=== PATIENT | male | born 1980 | race African-American/Black ===

== ENCOUNTER 2020-10-07 15:53 | Inpatient (IN) | payer OTHER ==
[2020-10-07] VITALS (9 sets, daily range): BP systolic 181–225; BP diastolic 86–128
[~2020-10-07] VITALS: Ht 180.3 cm; Wt 163.3 kg
[2020-10-07 16:31] LABS: BASO % 0.4 % (0.0-1.0); EOS # 0.3 10*3/uL (0.0-0.4); EOS % 3.5 % (1.0-4.0); HEMATOCRIT 29.5 % (42.0-52.0); LYMPH # 1.5 10*3/uL (1.3-4.4); LYMPH % 19.9 % (27.0-41.0); MEAN CELL VOLUME 95.8 fl (80.0-94.0); MEAN CORPUSCULAR HGB 29.9 pg (27.0-31.0); MEAN CORPUSCULAR HGB CONC 31.2 g/dl (33.0-37.0); MEAN PLATELET VOLUME 8.6 fl (9.6-12.3); MONO # 0.5 10*3/uL (0.1-1.0); MONO % 5.9 % (3.0-9.0); NEUT # 5.3 10*3/uL (2.3-7.9); NEUT % 69.1 % (47.0-73.0); PLATELET COUNT AUTOMATED 309 10*3/uL (130-400); RED BLOOD COUNT 3.08 10*6/uL (4.50-5.90); RED CELL DISTRI WIDTH 17.1 % (0-14.5); WHITE BLOOD COUNT 7.7 10*3/uL (4.8-10.8)
[2020-10-07 16:49] LABS: ALBUMIN 3.3 gm/dl (3.1-4.5); POTASSIUM 4.7 mmol/L (3.5-5.1); TOTAL PROTEIN 7.9 gm/dL (6.4-8.2)
[2020-10-07 16:52] LABS: CREATININE 21.1 mg/dL (0.70-1.30)
[2020-10-07] MEDS ORDERED: SENSIPAR90 MG PO (20:31)
[2020-10-07] MEDS ORDERED: COZAAR50 M1 PO (20:32)
[2020-10-07] MEDS ORDERED: CARVEDILOL25 MG PO (20:32)
[2020-10-07] MEDS ORDERED: GRALISE300 M1 PO (20:33)
[2020-10-07] MEDS ORDERED: LANTUS SOL100 UNIT/1 SC (20:34)
[2020-10-07] MEDS ORDERED: HUMALOG100 UNIT/1 SC (20:34)
[2020-10-08] VITALS (7 sets, daily range): BP systolic 141–196; BP diastolic 71–99
[2020-10-08 05:55] LABS: BILIRUBIN Negative (Negative); BLOOD 2+ (Negative); CLARITY Clear (Clear); COLOR Yellow (Yellow); GLUCOSE 2+ (Negative); KETONE Negative (Negative); LEUKO ESTERASE Negative (Negative); NITRITE Negative (Negative); UROBILINOGEN 0.2 E.U./dl (0.0-1.0)
[2020-10-08 06:04] LABS: WBC 0-2 wbc/hpf (0-5)
[2020-10-08 06:41] LABS: BASO % 0.4 % (0.0-1.0); EOS # 0.3 10*3/uL (0.0-0.4); EOS % 3.2 % (1.0-4.0); HEMATOCRIT 30.4 % (42.0-52.0); LYMPH # 1.2 10*3/uL (1.3-4.4); MEAN CELL VOLUME 96.2 fl (80.0-94.0); MEAN CORPUSCULAR HGB 29.4 pg (27.0-31.0); MEAN CORPUSCULAR HGB CONC 30.6 g/dl (33.0-37.0); MEAN PLATELET VOLUME 9.3 fl (9.6-12.3); MONO # 0.7 10*3/uL (0.1-1.0); MONO % 8.6 % (3.0-9.0); NEUT # 5.7 10*3/uL (2.3-7.9); PLATELET COUNT AUTOMATED 336 10*3/uL (130-400); RED BLOOD COUNT 3.16 10*6/uL (4.50-5.90); RED CELL DISTRI WIDTH 16.8 % (0-14.5); WHITE BLOOD COUNT 7.9 10*3/uL (4.8-10.8)
[2020-10-08 07:27] LABS: POTASSIUM 4.7 mmol/L (3.5-5.1)
[2020-10-08 07:28] LABS: VITAMIN D, 25-HYDROXY 17.6 ng/mL (30-100)
[2020-10-08 07:45] LABS: ALBUMIN 3.3 gm/dl (3.1-4.5); TOTAL PROTEIN 7.8 gm/dL (6.4-8.2)
[2020-10-08] MEDS ORDERED: NATURE'S BLEND F1 MG PO (13:07)
[2020-10-08] MEDS ORDERED: VITAMIN D350 MC2 PO (13:07)
[2020-10-09] VITALS: BP 146/50
== END 2020-10-09 12:57 | disposition short-term general hospital (02) | DRG 466 ==
LOC: ED 15:53 → 5E 17:31 → EDHOLD 17:31 → 5E 19:42
PROVIDERS: Internal Medicine; Nurse Practitioner; ADMIT Internal Medicine; ATTEND Internal Medicine
PROC: 06HM33Z Insertion of Infusion Device into Right Femoral Vein, Percutaneous Approach (ICD-10-PCS; principal; 2020-10-08)
PROC: 02PYX3Z Removal of Infusion Device from Great Vessel, External Approach (ICD-10-PCS; 2020-10-08)
PROC: 05JY3ZZ Inspection of Upper Vein, Percutaneous Approach (ICD-10-PCS; 2020-10-08)
PROC: 5A1D70Z Performance of Urinary Filtration, Intermittent, Less than 6 Hours Per Day (ICD-10-PCS; 2020-10-08)
PROC: 5A1D70Z Performance of Urinary Filtration, Intermittent, Less than 6 Hours Per Day (ICD-10-PCS; 2020-10-09)
DX: T82.41XA Breakdown (mechanical) of vascular dialysis catheter, initial encounter (principal); I12.0 Hypertensive chronic kidney disease with stage 5 chronic kidney disease or end stage renal disease; N18.6 End stage renal disease; E87.1 Hypo-osmolality and hyponatremia; E10.22 Type 1 diabetes mellitus with diabetic chronic kidney disease; D53.9 Nutritional anemia, unspecified; D72.810 Lymphocytopenia; E10.65 Type 1 diabetes mellitus with hyperglycemia; E83.39 Other disorders of phosphorus metabolism; E66.01 Morbid (severe) obesity due to excess calories; E53.8 Deficiency of other specified B group vitamins; I87.2 Venous insufficiency (chronic) (peripheral); R78.81 Bacteremia; Y84.8 Other medical procedures as the cause of abnormal reaction of the patient, or of later complication, without mention of misadventure at the time of the procedure; Y92.89 Other specified places as the place of occurrence of the external cause; Z88.8 Allergy status to other drugs, medicaments and biological substances; Z79.899 Other long term (current) drug therapy; Z99.2 Dependence on renal dialysis; Z79.4 Long term (current) use of insulin; Z68.43 Body mass index [BMI] 50.0-59.9, adult

== ENCOUNTER 2021-01-12 01:06 | Inpatient (IN) | payer MEDICAID ==
[~2021-01-12] VITALS: Ht 180.3 cm; Wt 140.3 kg
[2021-01-12] VITALS (26 sets, daily range): BP systolic 132–206; BP diastolic 49–118
[~2021-01-12 01:06] MED LIST: CALCIUM ACETAT667 MG PO; CARVEDILOL25 MG PO; COREG12.5 M1 PO; COZAAR50 M1 PO; GRALISE300 M1 PO; HUMALOG100 UNIT/1 SC; HYDROXYZINE HCL25 MG PO; LANTUS SOL100 UNIT/1 SC; LATU40TA PO; NATURE'S BLEND F1 MG PO; PANTOPRAZOLE SO40 MG PO; SENSIPAR90 MG PO; VITAMIN D350 MC2 PO
[2021-01-12 02:15] LABS: BASO % 0.4 % (0.0-1.0); EOS # 0.3 10*3/uL (0.0-0.4); EOS % 3.7 % (1.0-4.0); HEMATOCRIT 27.3 % (42.0-52.0); LYMPH # 1.2 10*3/uL (1.3-4.4); LYMPH % 16.9 % (27.0-41.0); MEAN CELL VOLUME 98.6 fl (80.0-94.0); MEAN CORPUSCULAR HGB 31.8 pg (27.0-31.0); MEAN CORPUSCULAR HGB CONC 32.2 g/dl (33.0-37.0); MEAN PLATELET VOLUME 9.1 fl (9.6-12.3); MONO # 0.5 10*3/uL (0.1-1.0); MONO % 6.9 % (3.0-9.0); NEUT # 5.2 10*3/uL (2.3-7.9); NEUT % 71.8 % (47.0-73.0); PLATELET COUNT AUTOMATED 278 10*3/uL (130-400); RED BLOOD COUNT 2.77 10*6/uL (4.50-5.90); RED CELL DISTRI WIDTH 16.3 % (0-14.5); WHITE BLOOD COUNT 7.2 10*3/uL (4.8-10.8)
[2021-01-12 02:34] LABS: ALBUMIN 3.5 gm/dl (3.1-4.5); POTASSIUM 4.3 mmol/L (3.5-5.1); TOTAL PROTEIN 7.4 gm/dL (6.4-8.2)
[2021-01-12 02:41] LABS: CREATININE 28.4 mg/dL (0.70-1.30); THYROID STIM HORMONE (HS) 2.54 uIU/ml (0.358-4.75)
[2021-01-12 05:27] LABS: ALBUMIN 3.4 gm/dl (3.1-4.5); POTASSIUM 4.5 mmol/L (3.5-5.1)
[2021-01-12 05:34] LABS: CREATININE 28.4 mg/dL (0.70-1.30)
[2021-01-12 06:12] LABS: BASO % 0.3 % (0.0-1.0); EOS # 0.3 10*3/uL (0.0-0.4); EOS % 3.7 % (1.0-4.0); HEMATOCRIT 25.6 % (42.0-52.0); LYMPH # 1.3 10*3/uL (1.3-4.4); LYMPH % 19.8 % (27.0-41.0); MEAN CELL VOLUME 98.8 fl (80.0-94.0); MEAN CORPUSCULAR HGB 31.7 pg (27.0-31.0); MONO # 0.4 10*3/uL (0.1-1.0); MONO % 6.4 % (3.0-9.0); NEUT # 4.7 10*3/uL (2.3-7.9); NEUT % 69.5 % (47.0-73.0); PLATELET COUNT AUTOMATED 288 10*3/uL (130-400); RED BLOOD COUNT 2.59 10*6/uL (4.50-5.90); RED CELL DISTRI WIDTH 16.2 % (0-14.5); WHITE BLOOD COUNT 6.8 10*3/uL (4.8-10.8)
[2021-01-12] MEDS ORDERED: ELIQUIS5 M1 PO (15:20)
[2021-01-12] MEDS ORDERED: LOSARTAN POTASS50 M1 PO (15:21)
[2021-01-12] MEDS ORDERED: TRAZODONE50 MG PO (16:37)
[2021-01-13 06:30] LABS: ALBUMIN 3.5 gm/dl (3.1-4.5); TOTAL PROTEIN 7.3 gm/dL (6.4-8.2)
[2021-01-13 06:32] LABS: BASO % 0.3 % (0.0-1.0); EOS # 0.3 10*3/uL (0.0-0.4); EOS % 4.3 % (1.0-4.0); LYMPH # 1.3 10*3/uL (1.3-4.4); LYMPH % 20.3 % (27.0-41.0); MEAN CELL VOLUME 96.2 fl (80.0-94.0); MEAN CORPUSCULAR HGB 31.3 pg (27.0-31.0); MEAN CORPUSCULAR HGB CONC 32.5 g/dl (33.0-37.0); MEAN PLATELET VOLUME 9.5 fl (9.6-12.3); MONO # 0.4 10*3/uL (0.1-1.0); NEUT # 4.3 10*3/uL (2.3-7.9); NEUT % 67.9 % (47.0-73.0); PLATELET COUNT AUTOMATED 288 10*3/uL (130-400); RED BLOOD COUNT 2.91 10*6/uL (4.50-5.90); RED CELL DISTRI WIDTH 15.8 % (0-14.5); WHITE BLOOD COUNT 6.3 10*3/uL (4.8-10.8)
[2021-01-13 07:28] LABS: CREATININE 20.8 mg/dL (0.70-1.30)
[2021-01-13 08:00] VITALS: BP 174/92
[2021-01-13] MEDS ORDERED: LATU40TA PO ×2 (12:58)
== END 2021-01-13 13:49 | disposition home or self-care (01) | DRG 304 ==
LOC: ED 01:06 → EDHOLD 04:13 → 5E 04:13
PROVIDERS: Emergency Medicine; Internal Medicine; ADMIT Student in an Organized Health Care Education/Training Program; ATTEND Student in an Organized Health Care Education/Training Program
PROC: 5A1D70Z Performance of Urinary Filtration, Intermittent, Less than 6 Hours Per Day (ICD-10-PCS; 2021-01-12)
PROC: 5A1D70Z Performance of Urinary Filtration, Intermittent, Less than 6 Hours Per Day (ICD-10-PCS; principal; 2021-01-13)
DX: I16.1 Hypertensive emergency (principal); N18.6 End stage renal disease; E87.1 Hypo-osmolality and hyponatremia; E53.8 Deficiency of other specified B group vitamins; R74.8 Abnormal levels of other serum enzymes; E83.41 Hypermagnesemia; E10.65 Type 1 diabetes mellitus with hyperglycemia; D53.9 Nutritional anemia, unspecified; R11.2 Nausea with vomiting, unspecified; R53.1 Weakness; R53.81 Other malaise; R00.0 Tachycardia, unspecified; R53.83 Other fatigue; I12.0 Hypertensive chronic kidney disease with stage 5 chronic kidney disease or end stage renal disease; E10.22 Type 1 diabetes mellitus with diabetic chronic kidney disease; Z99.2 Dependence on renal dialysis; Z88.8 Allergy status to other drugs, medicaments and biological substances; Z91.048 Other nonmedicinal substance allergy status; Z84.89 Family history of other specified conditions; Z86.711 Personal history of pulmonary embolism; Z79.899 Other long term (current) drug therapy; Z91.19 Patient's noncompliance with other medical treatment and regimen

== ENCOUNTER 2021-01-28 08:09 | Emergency (ER) | payer OTHER ==
[~2021-01-28] VITALS: Wt 134.7 kg
[~2021-01-28 08:09] MED LIST changes: +ELIQUIS5 M1 PO; +LOSARTAN POTASS50 M1 PO; +TRAZODONE50 MG PO
[2021-01-28 08:51] LABS: BASO % 0.2 % (0.0-1.0); EOS # 0.1 10*3/uL (0.0-0.4); EOS % 1.5 % (1.0-4.0); HEMATOCRIT 30.4 % (42.0-52.0); LYMPH # 1.1 10*3/uL (1.3-4.4); LYMPH % 12.9 % (27.0-41.0); MEAN CELL VOLUME 99.7 fl (80.0-94.0); MEAN CORPUSCULAR HGB 31.8 pg (27.0-31.0); MEAN CORPUSCULAR HGB CONC 31.9 g/dl (33.0-37.0); MEAN PLATELET VOLUME 9.4 fl (9.6-12.3); MONO # 0.8 10*3/uL (0.1-1.0); MONO % 9.2 % (3.0-9.0); NEUT # 6.3 10*3/uL (2.3-7.9); PLATELET COUNT AUTOMATED 222 10*3/uL (130-400); RED BLOOD COUNT 3.05 10*6/uL (4.50-5.90); RED CELL DISTRI WIDTH 16.7 % (0-14.5); WHITE BLOOD COUNT 8.2 10*3/uL (4.8-10.8)
[2021-01-28 09:06] LABS: ALBUMIN 3.2 gm/dl (3.1-4.5); CREATININE 19.7 mg/dL (0.70-1.30); POTASSIUM 3.9 mmol/L (3.5-5.1)
== END 2021-01-28 09:35 | disposition home or self-care (01) ==
LOC: ED 08:09
PROVIDERS: Family Medicine
DX: N18.6 End stage renal disease (principal); Z20.822 Contact with and (suspected) exposure to COVID-19; Z99.2 Dependence on renal dialysis; Z88.8 Allergy status to other drugs, medicaments and biological substances; Z79.899 Other long term (current) drug therapy

== ENCOUNTER 2021-02-10 02:01 | Inpatient (IN) | payer OTHER ==
[2021-02-10] VITALS (13 sets, daily range): BP systolic 139–229; BP diastolic 84–126
[~2021-02-10] VITALS: Ht 180.3 cm; Wt 142.3 kg
[2021-02-10 02:33] LABS: BASO % 0.3 % (0.0-1.0); EOS # 0.3 10*3/uL (0.0-0.4); EOS % 3.9 % (1.0-4.0); HEMATOCRIT 28.4 % (42.0-52.0); LYMPH # 1.2 10*3/uL (1.3-4.4); LYMPH % 16.1 % (27.0-41.0); MEAN CELL VOLUME 98.6 fl (80.0-94.0); MEAN CORPUSCULAR HGB 30.9 pg (27.0-31.0); MEAN CORPUSCULAR HGB CONC 31.3 g/dl (33.0-37.0); MEAN PLATELET VOLUME 9.7 fl (9.6-12.3); MONO # 0.4 10*3/uL (0.1-1.0); MONO % 5.2 % (3.0-9.0); NEUT # 5.3 10*3/uL (2.3-7.9); NEUT % 73.9 % (47.0-73.0); PLATELET COUNT AUTOMATED 247 10*3/uL (130-400); RED BLOOD COUNT 2.88 10*6/uL (4.50-5.90); RED CELL DISTRI WIDTH 15.6 % (0-14.5); WHITE BLOOD COUNT 7.2 10*3/uL (4.8-10.8)
[2021-02-10 02:50] LABS: ALBUMIN 3.4 gm/dl (3.1-4.5); POTASSIUM 5.2 mmol/L (3.5-5.1); TOTAL PROTEIN 7.2 gm/dL (6.4-8.2)
[2021-02-10 02:53] LABS: TROPONIN I 0.039 ng/ml (<0.045)
[2021-02-10 03:00] LABS: CREATININE 24.3 mg/dL (0.70-1.30)
[2021-02-10 05:51] LABS: POTASSIUM 5.6 mmol/L (3.5-5.1)
[2021-02-10 06:04] LABS: ALBUMIN 3.3 gm/dl (3.1-4.5); THYROID STIM HORMONE (HS) 3.4 uIU/ml (0.358-4.75); TOTAL PROTEIN 6.9 gm/dL (6.4-8.2)
[2021-02-10 06:08] LABS: CREATININE 24.6 mg/dL (0.70-1.30)
[2021-02-10 06:21] LABS: BASO % 0.3 % (0.0-1.0); EOS # 0.3 10*3/uL (0.0-0.4); HEMATOCRIT 27.3 % (42.0-52.0); LYMPH % 11.2 % (27.0-41.0); MEAN CELL VOLUME 98.9 fl (80.0-94.0); MEAN CORPUSCULAR HGB 31.2 pg (27.0-31.0); MEAN CORPUSCULAR HGB CONC 31.5 g/dl (33.0-37.0); MEAN PLATELET VOLUME 9.3 fl (9.6-12.3); MONO # 0.5 10*3/uL (0.1-1.0); MONO % 5.4 % (3.0-9.0); NEUT # 6.9 10*3/uL (2.3-7.9); NEUT % 79.8 % (47.0-73.0); PLATELET COUNT AUTOMATED 187 10*3/uL (130-400); RED BLOOD COUNT 2.76 10*6/uL (4.50-5.90); RED CELL DISTRI WIDTH 15.5 % (0-14.5); WHITE BLOOD COUNT 8.7 10*3/uL (4.8-10.8)
[2021-02-10 07:28] LABS: ACT PARTIAL THROMBO TIME 28.2 SECONDS (20.0-32.1)
[2021-02-10 07:30] LABS: VITAMIN D, 25-HYDROXY 26.2 ng/mL (30-100)
[2021-02-10] MEDS ORDERED: ELIQUIS5 M1 PO (14:18)
[2021-02-10] MEDS ORDERED: LOSARTAN POTASS50 M1 PO (14:19)
[2021-02-10] MEDS ORDERED: PHOSLYRA667 MG/51 PO (14:20)
[2021-02-11] VITALS: BP 163/96
[2021-02-11 06:54] LABS: ALBUMIN 3.2 gm/dl (3.1-4.5); BASO % 0.4 % (0.0-1.0); CREATININE 19.5 mg/dL (0.70-1.30); EOS # 0.2 10*3/uL (0.0-0.4); EOS % 3.4 % (1.0-4.0); HEMATOCRIT 23.8 % (42.0-52.0); LYMPH # 0.9 10*3/uL (1.3-4.4); LYMPH % 15.4 % (27.0-41.0); MEAN CELL VOLUME 95.2 fl (80.0-94.0); MEAN CORPUSCULAR HGB 31.2 pg (27.0-31.0); MEAN CORPUSCULAR HGB CONC 32.8 g/dl (33.0-37.0); MEAN PLATELET VOLUME 9.7 fl (9.6-12.3); MONO # 0.5 10*3/uL (0.1-1.0); NEUT # 4.1 10*3/uL (2.3-7.9); NEUT % 72.3 % (47.0-73.0); PLATELET COUNT AUTOMATED 193 10*3/uL (130-400); RED CELL DISTRI WIDTH 15.6 % (0-14.5); TOTAL PROTEIN 6.7 gm/dL (6.4-8.2); WHITE BLOOD COUNT 5.7 10*3/uL (4.8-10.8)
[2021-02-11 07:19] LABS: POTASSIUM 4.1 mmol/L (3.5-5.1)
[2021-02-11 08:00] VITALS: BP 184/82
[2021-02-11 12:35] VITALS: BP 200/100
== END 2021-02-11 14:10 | disposition home or self-care (01) | DRG 291 ==
LOC: ED 02:01 → EDHOLD 04:08 → 4E 04:08
PROVIDERS: Emergency Medicine; Hospitalist; Internal Medicine; ADMIT Emergency Medicine; ATTEND Emergency Medicine
PROC: 5A1D70Z Performance of Urinary Filtration, Intermittent, Less than 6 Hours Per Day (ICD-10-PCS; principal; 2021-02-10)
PROC: 5A1D70Z Performance of Urinary Filtration, Intermittent, Less than 6 Hours Per Day (ICD-10-PCS; 2021-02-11)
DX: I13.2 Hypertensive heart and chronic kidney disease with heart failure and with stage 5 chronic kidney disease, or end stage renal disease (principal); I50.33 Acute on chronic diastolic (congestive) heart failure; N18.6 End stage renal disease; I16.1 Hypertensive emergency; E44.0 Moderate protein-calorie malnutrition; Z68.41 Body mass index [BMI] 40.0-44.9, adult; E10.65 Type 1 diabetes mellitus with hyperglycemia; F12.90 Cannabis use, unspecified, uncomplicated; E10.22 Type 1 diabetes mellitus with diabetic chronic kidney disease; E53.8 Deficiency of other specified B group vitamins; G47.30 Sleep apnea, unspecified; E83.41 Hypermagnesemia; D64.9 Anemia, unspecified; R53.1 Weakness; R00.0 Tachycardia, unspecified; Z99.2 Dependence on renal dialysis; Z98.84 Bariatric surgery status; Z88.8 Allergy status to other drugs, medicaments and biological substances; Z91.048 Other nonmedicinal substance allergy status; Z86.711 Personal history of pulmonary embolism; Z84.89 Family history of other specified conditions; Z79.899 Other long term (current) drug therapy

== ENCOUNTER 2021-03-19 16:05 | Emergency (ER) | payer OTHER ==
[~2021-03-19] VITALS: Ht 180.3 cm; Wt 136.1 kg
[~2021-03-19 16:05] MED LIST changes: +PHOSLYRA667 MG/51 PO
[2021-03-26] MEDS ORDERED: NEURONTIN300 MG PO (10:40)
[2021-03-26] MEDS ORDERED: PROTONIX40 MG PO (10:41)
[2021-03-26] MEDS ORDERED: PERCOCET 5-3251 EACH PO (10:44)
[2021-03-26] MEDS ORDERED: NORVASC10 MG PO (10:49)
[2021-03-26] MEDS ORDERED: LEVEMIR FL100 UNIT/1 SQ (10:50)
== END 2021-03-19 20:00 | disposition left against medical advice (07) ==
LOC: ED 16:05
DX: R06.02 Shortness of breath (principal); R53.1 Weakness; R22.2 Localized swelling, mass and lump, trunk; Z53.21 Procedure and treatment not carried out due to patient leaving prior to being seen by health care provider

== ENCOUNTER 2021-03-21 17:17 | Emergency (ER) | payer OTHER ==
[~2021-03-21] VITALS: Ht 180.3 cm; Wt 136.1 kg
[2021-03-21 18:04] LABS: BASO % 0.2 % (0.0-1.0); EOS # 0.3 10*3/uL (0.0-0.4); EOS % 4.6 % (1.0-4.0); HEMATOCRIT 22.5 % (42.0-52.0); LYMPH # 0.9 10*3/uL (1.3-4.4); LYMPH % 14.6 % (27.0-41.0); MEAN CELL VOLUME 97.4 fl (80.0-94.0); MEAN CORPUSCULAR HGB 31.2 pg (27.0-31.0); MEAN PLATELET VOLUME 9.6 fl (9.6-12.3); MONO # 0.5 10*3/uL (0.1-1.0); MONO % 7.4 % (3.0-9.0); NEUT # 4.6 10*3/uL (2.3-7.9); NEUT % 72.6 % (47.0-73.0); PLATELET COUNT AUTOMATED 187 10*3/uL (130-400); RED BLOOD COUNT 2.31 10*6/uL (4.50-5.90); RED CELL DISTRI WIDTH 15.7 % (0-14.5); WHITE BLOOD COUNT 6.4 10*3/uL (4.8-10.8)
[2021-03-21 18:23] LABS: ALBUMIN 3.3 gm/dl (3.1-4.5); TOTAL PROTEIN 7.1 gm/dL (6.4-8.2)
[2021-03-21 18:27] LABS: TROPONIN I 0.028 ng/ml (<0.045)
[2021-03-21 18:35] LABS: CREATININE 26.8 mg/dL (0.70-1.30)
[2021-03-21 18:38] LABS: POTASSIUM 6.2 mmol/L (3.5-5.1)
[2021-03-26] MEDS ORDERED: NEURONTIN300 MG PO (10:40)
[2021-03-26] MEDS ORDERED: PROTONIX40 MG PO (10:41)
[2021-03-26] MEDS ORDERED: PERCOCET 5-3251 EACH PO (10:44)
[2021-03-26] MEDS ORDERED: NORVASC10 MG PO (10:49)
[2021-03-26] MEDS ORDERED: LEVEMIR FL100 UNIT/1 SQ (10:50)
== END 2021-03-21 18:53 | disposition home or self-care (01) ==
LOC: ED 17:17
PROVIDERS: Family Medicine
DX: R06.02 Shortness of breath (principal); Z88.8 Allergy status to other drugs, medicaments and biological substances; Z79.899 Other long term (current) drug therapy

== ENCOUNTER 2021-04-13 22:59 | Emergency (ER) | payer OTHER ==
[~2021-04-13] VITALS: Ht 180.3 cm; Wt 122.0 kg
[~2021-04-13 22:59] MED LIST changes: +LEVEMIR FL100 UNIT/1 SQ; +NEURONTIN300 MG PO; +NORVASC10 MG PO; +PERCOCET 5-3251 EACH PO; +PROTONIX40 MG PO
[2021-04-13 23:52] LABS: BASO % 0.3 % (0.0-1.0); EOS % 0.2 % (1.0-4.0); HEMATOCRIT 34.7 % (42.0-52.0); LYMPH # 1.3 10*3/uL (1.3-4.4); LYMPH % 13.3 % (27.0-41.0); MEAN CELL VOLUME 88.3 fl (80.0-94.0); MEAN PLATELET VOLUME 10.5 fl (9.6-12.3); MONO # 0.5 10*3/uL (0.1-1.0); MONO % 5.7 % (3.0-9.0); NEUT # 7.6 10*3/uL (2.3-7.9); NEUT % 79.9 % (47.0-73.0); NUCLEATED RED BLOOD CELL 0.4 % (0.0-0.0); PLATELET COUNT AUTOMATED 334 10*3/uL (130-400); RED BLOOD COUNT 3.93 10*6/uL (4.50-5.90); RED CELL DISTRI WIDTH 14.7 % (0-14.5); WHITE BLOOD COUNT 9.5 10*3/uL (4.8-10.8)
[2021-04-14 00:08] LABS: ALBUMIN 3.8 gm/dl (3.1-4.5); CREATININE 9.53 mg/dL (0.70-1.30); POTASSIUM 4.2 mmol/L (3.5-5.1); TOTAL PROTEIN 8.7 gm/dL (6.4-8.2)
[2021-04-14] MEDS ORDERED: ZOFRAN4 MG PO (00:48)
[2021-04-14] MEDS ORDERED: HYDROCODON-ACE1 EACH PO (00:48)
[2021-04-15] MEDS ORDERED: ZOFRAN4 MG PO (23:39)
== END 2021-04-14 00:53 | disposition home or self-care (01) ==
LOC: ED 22:59
PROVIDERS: Emergency Medicine
DX: R10.11 Right upper quadrant pain (principal); R11.2 Nausea with vomiting, unspecified; I12.0 Hypertensive chronic kidney disease with stage 5 chronic kidney disease or end stage renal disease; N18.6 End stage renal disease; Z99.2 Dependence on renal dialysis; Z88.8 Allergy status to other drugs, medicaments and biological substances; Z91.048 Other nonmedicinal substance allergy status; Z79.899 Other long term (current) drug therapy; Z79.4 Long term (current) use of insulin

== ENCOUNTER 2021-04-15 18:39 | Emergency (ER) | payer OTHER ==
[~2021-04-15] VITALS: Wt 90.7 kg
[~2021-04-15 18:39] MED LIST changes: +HYDROCODON-ACE1 EACH PO; +ZOFRAN4 MG PO
[2021-04-15 19:39] LABS: BASO % 0.3 % (0.0-1.0); EOS # 0.1 10*3/uL (0.0-0.4); EOS % 1.1 % (1.0-4.0); HEMATOCRIT 35.3 % (42.0-52.0); LYMPH # 0.9 10*3/uL (1.3-4.4); LYMPH % 11.8 % (27.0-41.0); MEAN CELL VOLUME 90.5 fl (80.0-94.0); MEAN CORPUSCULAR HGB 29.7 pg (27.0-31.0); MEAN CORPUSCULAR HGB CONC 32.9 g/dl (33.0-37.0); MEAN PLATELET VOLUME 9.2 fl (9.6-12.3); MONO # 0.5 10*3/uL (0.1-1.0); MONO % 5.9 % (3.0-9.0); NEUT # 6.4 10*3/uL (2.3-7.9); NEUT % 80.5 % (47.0-73.0); NUCLEATED RED BLOOD CELL 0.4 % (0.0-0.0); PLATELET COUNT AUTOMATED 260 10*3/uL (130-400); RED CELL DISTRI WIDTH 15.3 % (0-14.5); WHITE BLOOD COUNT 7.9 10*3/uL (4.8-10.8)
[2021-04-15 19:55] LABS: ALBUMIN 3.8 gm/dl (3.1-4.5); CREATININE 8.02 mg/dL (0.70-1.30); POTASSIUM 3.5 mmol/L (3.5-5.1); TOTAL PROTEIN 8.1 gm/dL (6.4-8.2)
[2021-04-15] MEDS ORDERED: ZOFRAN4 MG PO (23:39)
== END 2021-04-15 23:58 | disposition home or self-care (01) ==
LOC: ED 18:39
PROVIDERS: Internal Medicine
DX: K82.8 Other specified diseases of gallbladder (principal); Z20.822 Contact with and (suspected) exposure to COVID-19; E87.8 Other disorders of electrolyte and fluid balance, not elsewhere classified; D64.9 Anemia, unspecified; I13.2 Hypertensive heart and chronic kidney disease with heart failure and with stage 5 chronic kidney disease, or end stage renal disease; E11.22 Type 2 diabetes mellitus with diabetic chronic kidney disease; N18.6 End stage renal disease; Z99.2 Dependence on renal dialysis; Z88.8 Allergy status to other drugs, medicaments and biological substances; Z79.899 Other long term (current) drug therapy

== ENCOUNTER 2021-09-07 13:34 | Emergency (ER) | payer OTHER ==
[~2021-09-07] VITALS: Ht 180.3 cm; Wt 116.1 kg
[~2021-09-07 13:34] MED LIST changes: +APRESOLINE10 MG PO; +CINACALCET HCL30 MG PO
== END 2021-09-07 14:19 | disposition home or self-care (01) ==
LOC: ED 13:34
DX: H00.011 Hordeolum externum right upper eyelid (principal); Z88.8 Allergy status to other drugs, medicaments and biological substances; Z79.899 Other long term (current) drug therapy

== ENCOUNTER 2021-09-19 15:29 | Emergency (ER) | payer OTHER ==
[~2021-09-19] VITALS: Ht 180.3 cm; Wt 115.2 kg
[~2021-09-19 15:29] MED LIST changes: +CEFEPIME HYDROCH1 GM IJ; +VANCO 1 GR1 GM/250 M IV
[2021-09-19 16:22] LABS: BILIRUBIN Negative (Negative); BLOOD Negative (Negative); CLARITY Clear (Clear); COLOR Yellow (Yellow); GLUCOSE 1+ (Negative); KETONE Negative (Negative); LEUKO ESTERASE Negative (Negative); NITRITE Negative (Negative); UROBILINOGEN 0.2 E.U./dl (0.0-1.0)
[2021-09-19 16:27] LABS: BASO % 0.3 % (0.0-1.0); EOS # 0.4 10*3/uL (0.0-0.4); EOS % 5.6 % (1.0-4.0); HEMATOCRIT 24.1 % (42.0-52.0); LYMPH # 1.2 10*3/uL (1.3-4.4); LYMPH % 18.8 % (27.0-41.0); MEAN CELL VOLUME 92.3 fl (80.0-94.0); MEAN CORPUSCULAR HGB 29.9 pg (27.0-31.0); MEAN CORPUSCULAR HGB CONC 32.4 g/dl (33.0-37.0); MEAN PLATELET VOLUME 8.9 fl (9.6-12.3); MONO # 0.4 10*3/uL (0.1-1.0); MONO % 6.4 % (3.0-9.0); NEUT # 4.5 10*3/uL (2.3-7.9); NEUT % 68.3 % (47.0-73.0); PLATELET COUNT AUTOMATED 274 10*3/uL (130-400); RED BLOOD COUNT 2.61 10*6/uL (4.50-5.90); RED CELL DISTRI WIDTH 15.4 % (0-14.5); WHITE BLOOD COUNT 6.6 10*3/uL (4.8-10.8)
[2021-09-19 16:43] LABS: BACTERIA 1+; EPITHELIAL CELLS 0-2
[2021-09-19 16:46] LABS: CREATININE 12.4 mg/dL (0.70-1.30); TOTAL PROTEIN 6.7 gm/dL (6.4-8.2)
== END 2021-09-19 21:19 | disposition left against medical advice (07) ==
LOC: ED 15:29
PROVIDERS: Nurse Practitioner Family
DX: M54.50 Low back pain, unspecified (principal); R10.31 Right lower quadrant pain; Z88.8 Allergy status to other drugs, medicaments and biological substances; Z79.899 Other long term (current) drug therapy; Z87.891 Personal history of nicotine dependence

== ENCOUNTER 2021-10-07 01:40 | Emergency (ER) | payer OTHER ==
[2021-10-07 02:14] LABS: BASO % 0.3 % (0.0-1.0); EOS # 0.4 10*3/uL (0.0-0.4); EOS % 6.7 % (1.0-4.0); HEMATOCRIT 23.4 % (42.0-52.0); LYMPH # 1.2 10*3/uL (1.3-4.4); LYMPH % 19.3 % (27.0-41.0); MEAN CELL VOLUME 92.1 fl (80.0-94.0); MEAN CORPUSCULAR HGB 29.5 pg (27.0-31.0); MEAN CORPUSCULAR HGB CONC 32.1 g/dl (33.0-37.0); MEAN PLATELET VOLUME 8.9 fl (9.6-12.3); MONO # 0.3 10*3/uL (0.1-1.0); MONO % 5.2 % (3.0-9.0); NEUT # 4.1 10*3/uL (2.3-7.9); NEUT % 68.2 % (47.0-73.0); PLATELET COUNT AUTOMATED 218 10*3/uL (130-400); RED BLOOD COUNT 2.54 10*6/uL (4.50-5.90); RED CELL DISTRI WIDTH 15.4 % (0-14.5)
[2021-10-07 02:31] LABS: CREATININE 9.14 mg/dL (0.70-1.30); POTASSIUM 4.4 mmol/L (3.5-5.1); TOTAL PROTEIN 6.8 gm/dL (6.4-8.2)
== END 2021-10-07 02:47 | disposition home or self-care (01) ==
LOC: ED 01:40
PROVIDERS: Emergency Medicine
DX: R10.9 Unspecified abdominal pain (principal); M54.9 Dorsalgia, unspecified; R19.7 Diarrhea, unspecified; Z88.8 Allergy status to other drugs, medicaments and biological substances; Z79.899 Other long term (current) drug therapy; Z87.891 Personal history of nicotine dependence

== ENCOUNTER 2022-03-18 15:34 | Emergency (ER) | payer MEDICAID ==
[~2022-03-18] VITALS: Ht 180.3 cm; Wt 93.0 kg
[~2022-03-18 15:34] MED LIST changes: +APRESOLINE25 MG PO; +COREG25 MG PO; +GEODON20 MG PO
[2022-03-18] MEDS ORDERED: 'CLONIDINE0.1 MG PO (15:42)
[2022-03-18 16:14] LABS: BASO % 0.2 % (0.0-1.0); EOS # 0.1 10*3/uL (0.0-0.4); HEMATOCRIT 34.8 % (42.0-52.0); LYMPH # 1.1 10*3/uL (1.3-4.4); MEAN CELL VOLUME 101.8 fl (80.0-94.0); MEAN CORPUSCULAR HGB 33.6 pg (27.0-31.0); MEAN PLATELET VOLUME 9.3 fl (9.6-12.3); MONO # 0.5 10*3/uL (0.1-1.0); NEUT # 4.4 10*3/uL (2.3-7.9); NEUT % 71.3 % (47.0-73.0); PLATELET COUNT AUTOMATED 183 10*3/uL (130-400); RED BLOOD COUNT 3.42 10*6/uL (4.50-5.90); RED CELL DISTRI WIDTH 14.6 % (0-14.5); WHITE BLOOD COUNT 6.2 10*3/uL (4.8-10.8)
[2022-03-18 16:35] LABS: POTASSIUM 5.1 mmol/L (3.5-5.1); TOTAL PROTEIN 7.1 gm/dL (6.4-8.2)
== END 2022-03-18 18:46 | disposition home or self-care (01) ==
LOC: ED 15:34
PROVIDERS: Nurse Practitioner Family
DX: B34.9 Viral infection, unspecified (principal); Z20.822 Contact with and (suspected) exposure to COVID-19; I13.2 Hypertensive heart and chronic kidney disease with heart failure and with stage 5 chronic kidney disease, or end stage renal disease; E11.22 Type 2 diabetes mellitus with diabetic chronic kidney disease; N18.5 Chronic kidney disease, stage 5; N17.9 Acute kidney failure, unspecified; Z88.8 Allergy status to other drugs, medicaments and biological substances; Z87.891 Personal history of nicotine dependence

== ENCOUNTER 2022-05-18 18:11 | Emergency (ER) | payer MEDICAID ==
[~2022-05-18] VITALS: Ht 180.3 cm; Wt 95.3 kg
[~2022-05-18 18:11] MED LIST changes: +'CLONIDINE0.1 MG PO
== END 2022-05-18 21:59 | disposition left against medical advice (07) ==
LOC: ED 18:11
DX: Z53.21 Procedure and treatment not carried out due to patient leaving prior to being seen by health care provider (principal)

== ENCOUNTER 2022-06-01 22:57 | Emergency (ER) | payer MEDICAID | END 2022-06-02 02:33 | disposition left against medical advice (07) | LOC: ED 22:57 | DX: Z53.21 Procedure and treatment not carried out due to patient leaving prior to being seen by health care provider (principal) ==

== ENCOUNTER 2022-06-04 23:07 | Emergency (ER) | payer MEDICAID ==
[~2022-06-04] VITALS: Ht 180.3 cm; Wt 102.1 kg
[2022-06-04] MEDS ORDERED: REGLAN5 MG PO (23:25)
[2022-06-04 23:46] LABS: BASO % 0.4 % (0.0-1.0); EOS # 0.1 10*3/uL (0.0-0.4); HEMATOCRIT 27.3 % (42.0-52.0); LYMPH # 1.2 10*3/uL (1.3-4.4); LYMPH % 25.7 % (27.0-41.0); MEAN CELL VOLUME 97.2 fl (80.0-94.0); MEAN CORPUSCULAR HGB 31.7 pg (27.0-31.0); MEAN CORPUSCULAR HGB CONC 32.6 g/dl (33.0-37.0); MEAN PLATELET VOLUME 8.5 fl (9.6-12.3); MONO # 0.4 10*3/uL (0.1-1.0); MONO % 7.6 % (3.0-9.0); NEUT % 62.9 % (47.0-73.0); PLATELET COUNT AUTOMATED 181 10*3/uL (130-400); RED BLOOD COUNT 2.81 10*6/uL (4.50-5.90); RED CELL DISTRI WIDTH 15.1 % (0-14.5); WHITE BLOOD COUNT 4.7 10*3/uL (4.8-10.8)
[2022-06-05 00:06] LABS: CREATININE 10.18 mg/dL (0.70-1.30); POTASSIUM 4.7 mmol/L (3.4-5.1); TOTAL PROTEIN 6.3 gm/dL (6.0-8.0)
== END 2022-06-05 00:36 | disposition home or self-care (01) ==
LOC: ED 23:07
PROVIDERS: Emergency Medicine
DX: R07.89 Other chest pain (principal); Z88.8 Allergy status to other drugs, medicaments and biological substances; Z98.890 Other specified postprocedural states; F12.90 Cannabis use, unspecified, uncomplicated

== ENCOUNTER 2022-07-01 23:08 | Emergency (ER) | payer MEDICAID ==
[~2022-07-01] VITALS: Ht 182.8 cm; Wt 99.8 kg
[~2022-07-01 23:08] MED LIST changes: +REGLAN5 MG PO
[2022-07-02 00:25] LABS: HEMATOCRIT 23.9 % (42.0-52.0); MEAN CELL VOLUME 95.6 fl (80.0-94.0); MEAN CORPUSCULAR HGB 30.8 pg (27.0-31.0); MEAN CORPUSCULAR HGB CONC 32.2 g/dl (33.0-37.0); MEAN PLATELET VOLUME 8.7 fl (9.6-12.3); PLATELET COUNT AUTOMATED 302 10*3/uL (130-400); RED CELL DISTRI WIDTH 14.8 % (0-14.5); WHITE BLOOD COUNT 6.3 10*3/uL (4.8-10.8)
[2022-07-02 00:28] LABS: MANUAL DIFF REFLEX YES
[2022-07-02 00:39] LABS: ALKALINE PHOSPHATASE 115 U/L (46-116); BUN 77 mg/dl (9-23); CHLORIDE 100 mmol/L (98-107); POTASSIUM 4.9 mmol/L (3.4-5.1); SGPT/ALT 25 U/L (10-49); TOTAL PROTEIN 6.4 gm/dL (6.0-8.0)
[2022-07-02 00:46] LABS: BASOPHILS 2 % (0-1); PLATELET SUFFICIENCY NORMAL (NORMAL); TOTAL CELLS COUNTED 100 #CELLS
[2022-07-02 00:47] LABS: MICROCYTOSIS SLIGHT
== END 2022-07-02 03:15 | disposition home or self-care (01) ==
LOC: ED 23:08
PROVIDERS: Emergency Medicine
DX: I13.2 Hypertensive heart and chronic kidney disease with heart failure and with stage 5 chronic kidney disease, or end stage renal disease (principal); R78.81 Bacteremia; Z88.8 Allergy status to other drugs, medicaments and biological substances; Z98.890 Other specified postprocedural states; I50.9 Heart failure, unspecified; E11.22 Type 2 diabetes mellitus with diabetic chronic kidney disease; N18.6 End stage renal disease

== ENCOUNTER 2022-10-15 12:16 | Emergency (ER) | payer MEDICAID ==
[2022-10-15] VITALS (8 sets, daily range): BP systolic 112–175; BP diastolic 60–91
[~2022-10-15] VITALS: Ht 180.3 cm; Wt 104.3 kg
[2022-10-15 12:49] LABS: MEAN CORPUSCULAR HGB 31.1 pg (27.0-31.0); MEAN CORPUSCULAR HGB CONC 31.1 g/dl (33.0-37.0); MEAN PLATELET VOLUME 8.8 fl (9.6-12.3); PLATELET COUNT AUTOMATED 350 10*3/uL (130-400); RED BLOOD COUNT 1.96 10*6/uL (4.50-5.90); RED CELL DISTRI WIDTH 15.2 % (0-14.5); WHITE BLOOD COUNT 12.9 10*3/uL (4.8-10.8)
[2022-10-15 12:52] LABS: MANUAL DIFF REFLEX YES
[2022-10-15 12:53] LABS: HEMATOCRIT 19.6 % (42.0-52.0)
[2022-10-15 13:04] LABS: ALKALINE PHOSPHATASE 87 U/L (46-116); BUN 109 mg/dl (9-23); CHLORIDE 90 mmol/L (98-107); TOTAL PROTEIN 7.4 gm/dL (6.0-8.0)
[2022-10-15 13:08] LABS: SGPT/ALT < 7 U/L (10-49)
[2022-10-15 13:09] LABS: OVALOCYTES FEW; POLYCHROMASIA SLIGHT; POTASSIUM 7.3 mmol/L (3.4-5.1); SCHISTOCYTES FEW; TOTAL CELLS COUNTED 100 #CELLS
[2022-10-15 13:10] LABS: PLATELET SUFFICIENCY NORMAL (NORMAL); ROULEAUX SLIGHT; TARGET CELLS FEW
== END 2022-10-15 23:22 | disposition left against medical advice (07) ==
LOC: ED 12:16
PROVIDERS: Nurse Practitioner Family
DX: D64.9 Anemia, unspecified (principal); C79.51 Secondary malignant neoplasm of bone; N18.6 End stage renal disease; E87.8 Other disorders of electrolyte and fluid balance, not elsewhere classified; E44.1 Mild protein-calorie malnutrition; E11.22 Type 2 diabetes mellitus with diabetic chronic kidney disease; I13.2 Hypertensive heart and chronic kidney disease with heart failure and with stage 5 chronic kidney disease, or end stage renal disease; I50.9 Heart failure, unspecified; Z99.2 Dependence on renal dialysis; Z88.8 Allergy status to other drugs, medicaments and biological substances; Z79.899 Other long term (current) drug therapy

== ENCOUNTER 2022-10-16 12:46 | Emergency (ER) | payer MEDICAID ==
[~2022-10-16] VITALS: Wt 101.6 kg
[2022-10-16 13:18] LABS: BASO % 0.3 % (0.0-1.0); EOS # 0.2 10*3/uL (0.0-0.4); EOS % 1.6 % (1.0-4.0); HEMATOCRIT 21.5 % (42.0-52.0); LYMPH % 9.4 % (27.0-41.0); MEAN CORPUSCULAR HGB 31.6 pg (27.0-31.0); MEAN PLATELET VOLUME 9.2 fl (9.6-12.3); MONO % 9.9 % (3.0-9.0); NEUT # 8.1 10*3/uL (2.3-7.9); NEUT % 78.4 % (47.0-73.0); PLATELET COUNT AUTOMATED 340 10*3/uL (130-400); RED BLOOD COUNT 2.25 10*6/uL (4.50-5.90); RED CELL DISTRI WIDTH 17.4 % (0-14.5); WHITE BLOOD COUNT 10.3 10*3/uL (4.8-10.8)
[2022-10-16 13:24] LABS: MEAN CELL VOLUME 95.6 fl (80.0-94.0)
[2022-10-16 13:31] LABS: ACT PARTIAL THROMBO TIME 32.7 SECONDS (20.0-32.1); INTERNATIONAL NORM RATIO 1.3 (2.0-3.5)
[2022-10-16 13:52] LABS: ALKALINE PHOSPHATASE 81 U/L (46-116); CHLORIDE 91 mmol/L (98-107); LIPASE 24 U/L (12-53); TOTAL PROTEIN 7.4 gm/dL (6.0-8.0)
[2022-10-16 14:03] LABS: BUN 67 mg/dl (9-23); POTASSIUM 5.2 mmol/L (3.4-5.1); SGPT/ALT < 7 U/L (10-49)
[2022-10-16 15:25] LABS: ETHYL ALCOHOL < 3.0 mg/dl (<3)
== END 2022-10-16 18:58 | disposition short-term general hospital (02) ==
LOC: ED 12:46
PROVIDERS: Emergency Medicine
DX: C72.0 Malignant neoplasm of spinal cord (principal); G93.41 Metabolic encephalopathy; I13.2 Hypertensive heart and chronic kidney disease with heart failure and with stage 5 chronic kidney disease, or end stage renal disease; E11.22 Type 2 diabetes mellitus with diabetic chronic kidney disease; N18.6 End stage renal disease; I50.9 Heart failure, unspecified; F17.200 Nicotine dependence, unspecified, uncomplicated; Z99.2 Dependence on renal dialysis; Z88.8 Allergy status to other drugs, medicaments and biological substances; Z79.899 Other long term (current) drug therapy

== ENCOUNTER 2022-11-11 15:33 | Emergency (ER) | payer MEDICAID ==
[~2022-11-11] VITALS: Ht 180.3 cm; Wt 99.8 kg
[2022-11-11 16:48] LABS: BASO % 0.5 % (0.0-1.0); EOS # 0.3 10*3/uL (0.0-0.4); EOS % 4.3 % (1.0-4.0); HEMATOCRIT 24.9 % (42.0-52.0); LYMPH # 0.9 10*3/uL (1.3-4.4); MEAN CELL VOLUME 95.8 fl (80.0-94.0); MEAN CORPUSCULAR HGB 31.5 pg (27.0-31.0); MEAN CORPUSCULAR HGB CONC 32.9 g/dl (33.0-37.0); MEAN PLATELET VOLUME 8.7 fl (9.6-12.3); MONO # 0.6 10*3/uL (0.1-1.0); NEUT # 5.7 10*3/uL (2.3-7.9); NEUT % 74.9 % (47.0-73.0); PLATELET COUNT AUTOMATED 220 10*3/uL (130-400); RED CELL DISTRI WIDTH 15.9 % (0-14.5); WHITE BLOOD COUNT 7.6 10*3/uL (4.8-10.8)
[2022-11-11 17:19] LABS: ALKALINE PHOSPHATASE 131 U/L (46-116); BUN 31 mg/dl (9-23); CHLORIDE 95 mmol/L (98-107); POTASSIUM 3.8 mmol/L (3.4-5.1); TOTAL PROTEIN 6.9 gm/dL (6.0-8.0)
[2022-11-11 17:20] LABS: SGPT/ALT < 7 U/L (10-49)
[2022-11-11] MEDS ORDERED: PERCOCET 5-3251 EACH PO (18:51)
== END 2022-11-11 19:24 | disposition home or self-care (01) ==
LOC: ED 15:33
PROVIDERS: Nurse Practitioner Family
DX: N18.9 Chronic kidney disease, unspecified (principal); M89.9 Disorder of bone, unspecified; E11.9 Type 2 diabetes mellitus without complications; M25.512 Pain in left shoulder; I50.9 Heart failure, unspecified; I13.0 Hypertensive heart and chronic kidney disease with heart failure and stage 1 through stage 4 chronic kidney disease, or unspecified chronic kidney disease; N17.9 Acute kidney failure, unspecified; Z88.8 Allergy status to other drugs, medicaments and biological substances; F12.90 Cannabis use, unspecified, uncomplicated

== ENCOUNTER 2022-12-25 18:19 | Emergency (ER) | payer MEDICAID ==
[~2022-12-25] VITALS: Ht 180.3 cm; Wt 99.8 kg
[2022-12-25] MEDS ORDERED: CARAFATE1 G1 PO (19:31)
[2022-12-25] MEDS ORDERED: OMEPRAZOLE40 MG PO (19:31)
== END 2022-12-25 20:01 | disposition home or self-care (01) ==
LOC: ED 18:19
DX: K27.9 Peptic ulcer, site unspecified, unspecified as acute or chronic, without hemorrhage or perforation (principal); R07.81 Pleurodynia; M54.9 Dorsalgia, unspecified; I50.9 Heart failure, unspecified; I11.0 Hypertensive heart disease with heart failure; E11.9 Type 2 diabetes mellitus without complications; Z88.8 Allergy status to other drugs, medicaments and biological substances; Z98.890 Other specified postprocedural states; F12.90 Cannabis use, unspecified, uncomplicated

== ENCOUNTER 2023-03-23 14:30 | Emergency (ER) | payer MEDICAID ==
[~2023-03-23] VITALS: Ht 180.3 cm; Wt 99.8 kg
[~2023-03-23 14:30] MED LIST changes: +CARAFATE1 G1 PO; +OMEPRAZOLE40 MG PO
[2023-03-23 16:14] LABS: BASO % 0.2 % (0.0-1.0); EOS # 0.1 10*3/uL (0.0-0.4); EOS % 2.1 % (1.0-4.0); LYMPH # 1.2 10*3/uL (1.3-4.4); LYMPH % 27.5 % (27.0-41.0); MEAN CELL VOLUME 100.7 fl (80.0-94.0); MEAN CORPUSCULAR HGB 32.3 pg (27.0-31.0); MEAN CORPUSCULAR HGB CONC 32.1 g/dl (33.0-37.0); MEAN PLATELET VOLUME 8.8 fl (9.6-12.3); MONO # 0.4 10*3/uL (0.1-1.0); MONO % 8.3 % (3.0-9.0); NEUT # 2.7 10*3/uL (2.3-7.9); NEUT % 61.7 % (47.0-73.0); PLATELET COUNT AUTOMATED 185 10*3/uL (130-400); RED BLOOD COUNT 2.88 10*6/uL (4.50-5.90); RED CELL DISTRI WIDTH 15.5 % (0-14.5); WHITE BLOOD COUNT 4.3 10*3/uL (4.8-10.8)
[2023-03-23 16:26] LABS: ACT PARTIAL THROMBO TIME 26.8 SECONDS (20.0-32.1); INTERNATIONAL NORM RATIO 1.1 (2.0-3.5)
[2023-03-23 16:38] LABS: ALKALINE PHOSPHATASE 243 U/L (46-116); BUN 28 mg/dl (9-23); CHLORIDE 96 mmol/L (98-107); POTASSIUM 3.7 mmol/L (3.4-5.1); SGPT/ALT < 7 U/L (10-49); TOTAL PROTEIN 6.7 gm/dL (6.0-8.0)
== END 2023-03-23 16:56 | disposition home or self-care (01) ==
LOC: ED 14:30
PROVIDERS: Emergency Medicine
DX: S60.940 Unspecified superficial injury of right index finger (principal); M79.644 Pain in right finger(s); E11.22 Type 2 diabetes mellitus with diabetic chronic kidney disease; I13.2 Hypertensive heart and chronic kidney disease with heart failure and with stage 5 chronic kidney disease, or end stage renal disease; I50.9 Heart failure, unspecified; N18.6 End stage renal disease; Z99.2 Dependence on renal dialysis; Z88.8 Allergy status to other drugs, medicaments and biological substances; Z98.890 Other specified postprocedural states; F12.90 Cannabis use, unspecified, uncomplicated; W26.9XXD Contact with unspecified sharp object(s), subsequent encounter

== ENCOUNTER → 2023-03-24 | Outpatient (CLI) | payer MEDICAID | END | disposition home or self-care (01) | LOC: WOUNDCARE 10:07 | PROVIDERS: ATTEND Nurse Practitioner Family | DX: S61.411A Laceration without foreign body of right hand, initial encounter (principal); L92.8 Other granulomatous disorders of the skin and subcutaneous tissue; E11.622 Type 2 diabetes mellitus with other skin ulcer; L98.491 Non-pressure chronic ulcer of skin of other sites limited to breakdown of skin; E11.22 Type 2 diabetes mellitus with diabetic chronic kidney disease; N18.9 Chronic kidney disease, unspecified; I13.0 Hypertensive heart and chronic kidney disease with heart failure and stage 1 through stage 4 chronic kidney disease, or unspecified chronic kidney disease; I50.9 Heart failure, unspecified; Z99.2 Dependence on renal dialysis; X58.XXXA Exposure to other specified factors, initial encounter; Y93.89 Activity, other specified; Y92.89 Other specified places as the place of occurrence of the external cause; Y99.8 Other external cause status ==

== ENCOUNTER 2023-05-21 09:23 | Emergency (ER) | payer OTHER ==
[~2023-05-21] VITALS: Wt 93.0 kg
[2023-05-21 11:31] LABS: BASO % 0.7 % (0.0-1.0); EOS # 0.1 10*3/uL (0.0-0.4); EOS % 3.3 % (1.0-4.0); HEMATOCRIT 35.8 % (42.0-52.0); LYMPH # 1.2 10*3/uL (1.3-4.4); LYMPH % 27.3 % (27.0-41.0); MEAN CELL VOLUME 100.8 fl (80.0-94.0); MEAN CORPUSCULAR HGB CONC 30.7 g/dl (33.0-37.0); MEAN PLATELET VOLUME 9.1 fl (9.6-12.3); MONO # 0.4 10*3/uL (0.1-1.0); MONO % 10.3 % (3.0-9.0); NEUT # 2.5 10*3/uL (2.3-7.9); NEUT % 58.2 % (47.0-73.0); PLATELET COUNT AUTOMATED 236 10*3/uL (130-400); RED BLOOD COUNT 3.55 10*6/uL (4.50-5.90); RED CELL DISTRI WIDTH 17.2 % (0-14.5); WHITE BLOOD COUNT 4.3 10*3/uL (4.8-10.8)
[2023-05-21 12:00] LABS: ALKALINE PHOSPHATASE 275 U/L (46-116); BUN 29 mg/dl (9-23); CHLORIDE 95 mmol/L (98-107); LIPASE 34 U/L (12-53); POTASSIUM 4.9 mmol/L (3.4-5.1); TOTAL PROTEIN 7.3 gm/dL (6.0-8.0)
[2023-05-21 12:01] LABS: SGPT/ALT < 7 U/L (5-49)
== END 2023-05-21 14:52 | disposition home or self-care (01) ==
LOC: ED 09:23
PROVIDERS: Emergency Medicine
DX: M46.40 Discitis, unspecified, site unspecified (principal); R11.2 Nausea with vomiting, unspecified; R10.13 Epigastric pain; M46.24 Osteomyelitis of vertebra, thoracic region; E11.9 Type 2 diabetes mellitus without complications; I11.0 Hypertensive heart disease with heart failure; I50.9 Heart failure, unspecified; Z88.8 Allergy status to other drugs, medicaments and biological substances; Z98.890 Other specified postprocedural states; F12.90 Cannabis use, unspecified, uncomplicated

== ENCOUNTER → 2023-07-27 | Outpatient (CLI) | payer MEDICAID | END | disposition home or self-care (01) | LOC: LAB 13:25 | PROVIDERS: ATTEND Orthopaedic Surgery | DX: M50.33 Other cervical disc degeneration, cervicothoracic region (principal); M51.9 Unspecified thoracic, thoracolumbar and lumbosacral intervertebral disc disorder ==

== ENCOUNTER 2023-07-29 19:42 | Emergency (ER) | payer MEDICAID ==
[~2023-07-29] VITALS: Ht 180.3 cm; Wt 98.9 kg
[2023-07-29] MEDS ORDERED: OXYCODONE HCL (IR) 5 MG TAB PO ONE (20:10)
== END 2023-07-29 21:49 | disposition home or self-care (01) ==
LOC: ED 19:42
DX: S99.922A Unspecified injury of left foot, initial encounter (principal); I12.0 Hypertensive chronic kidney disease with stage 5 chronic kidney disease or end stage renal disease; E10.22 Type 1 diabetes mellitus with diabetic chronic kidney disease; N18.6 End stage renal disease; I26.99 Other pulmonary embolism without acute cor pulmonale; E44.1 Mild protein-calorie malnutrition; E66.01 Morbid (severe) obesity due to excess calories; Z99.2 Dependence on renal dialysis; Z86.718 Personal history of other venous thrombosis and embolism; Z68.30 Body mass index [BMI] 30.0-30.9, adult; Z88.8 Allergy status to other drugs, medicaments and biological substances; Z91.048 Other nonmedicinal substance allergy status; Z79.899 Other long term (current) drug therapy; Z79.4 Long term (current) use of insulin; X50.1XXA Overexertion from prolonged static or awkward postures, initial encounter; Y93.01 Activity, walking, marching and hiking; Y92.89 Other specified places as the place of occurrence of the external cause; Y99.8 Other external cause status

== ENCOUNTER → 2023-08-27 | Outpatient (CLI) | payer MEDICAID ==
[2023-08-27 14:10] LABS: BASO % 0.6 % (0.0-1.0); EOS # 0.2 10*3/uL (0.0-0.4); EOS % 3.4 % (1.0-4.0); HEMATOCRIT 27.9 % (42.0-52.0); LYMPH # 1.4 10*3/uL (1.3-4.4); LYMPH % 27.6 % (27.0-41.0); MEAN CORPUSCULAR HGB 32.8 pg (27.0-31.0); MEAN CORPUSCULAR HGB CONC 31.9 g/dl (33.0-37.0); MEAN PLATELET VOLUME 8.6 fl (9.6-12.3); MONO # 0.4 10*3/uL (0.1-1.0); MONO % 8.2 % (3.0-9.0); NEUT # 3.1 10*3/uL (2.3-7.9); NEUT % 59.8 % (47.0-73.0); PLATELET COUNT AUTOMATED 239 10*3/uL (130-400); RED BLOOD COUNT 2.71 10*6/uL (4.50-5.90); RED CELL DISTRI WIDTH 13.8 % (0-14.5); WHITE BLOOD COUNT 5.2 10*3/uL (4.8-10.8)
[2023-08-27 14:49] LABS: ALKALINE PHOSPHATASE 348 U/L (46-116); BUN 31 mg/dl (9-23); CHLORIDE 93 mmol/L (98-107); POTASSIUM 4.1 mmol/L (3.4-5.1); THYROXINE (T4) TOTAL 6.4 ug/dl (4.5-10.9); TOTAL PROTEIN 6.9 gm/dL (6.0-8.0)
[2023-08-27 14:51] LABS: SGPT/ALT < 7 U/L (5-49)
== END | disposition home or self-care (01) ==
LOC: US 12:47
PROVIDERS: ATTEND Urology
DX: N20.0 Calculus of kidney (principal); N28.89 Other specified disorders of kidney and ureter; R97.20 Elevated prostate specific antigen [PSA]; N52.9 Male erectile dysfunction, unspecified; R53.82 Chronic fatigue, unspecified

== ENCOUNTER → 2023-09-14 | Outpatient (CLI) | payer MEDICAID ==
[~2023-09-14] MED LIST changes: +Regadenoson 0.4 MG/5 ML SYR IV ONE
== END | disposition home or self-care (01) ==
LOC: CARD 00:35
PROVIDERS: ATTEND Internal Medicine Nephrology
DX: Z01.818 Encounter for other preprocedural examination (principal); R00.0 Tachycardia, unspecified; I05.2 Rheumatic mitral stenosis with insufficiency

== ENCOUNTER 2023-12-13 20:16 | Emergency (ER) | payer MEDICAID ==
[~2023-12-13] VITALS: Ht 180.3 cm; Wt 95.3 kg
[~2023-12-13 20:16] MED LIST changes: -Regadenoson 0.4 MG/5 ML SYR IV ONE
[2023-12-13] MEDS ORDERED: AURYXIA210 MG PO (20:25)
[2023-12-13] MEDS ORDERED: ACETAMINOPHEN 325 MG TAB PO ONE (20:30)
[2023-12-13 20:44] LABS: BASO % 0.5 % (0.0-1.0); EOS # 0.5 10*3/uL (0.0-0.4); EOS % 6.1 % (1.0-4.0); HEMATOCRIT 32.6 % (42.0-52.0); LYMPH # 1.6 10*3/uL (1.3-4.4); LYMPH % 21.4 % (27.0-41.0); MEAN CELL VOLUME 103.5 fl (80.0-94.0); MEAN CORPUSCULAR HGB CONC 31.9 g/dl (33.0-37.0); MONO # 0.6 10*3/uL (0.1-1.0); MONO % 7.4 % (3.0-9.0); NEUT # 4.9 10*3/uL (2.3-7.9); NEUT % 64.2 % (47.0-73.0); PLATELET COUNT AUTOMATED 230 10*3/uL (130-400); RED BLOOD COUNT 3.15 10*6/uL (4.50-5.90); RED CELL DISTRI WIDTH 16.5 % (0-14.5); WHITE BLOOD COUNT 7.6 10*3/uL (4.8-10.8)
[2023-12-13 21:08] LABS: POTASSIUM 5.8 mmol/L (3.4-5.1)
== END 2023-12-13 22:20 | disposition home or self-care (01) ==
LOC: ED 20:16
PROVIDERS: Physician Assistant Medical
DX: M25.461 Effusion, right knee (principal); E10.22 Type 1 diabetes mellitus with diabetic chronic kidney disease; I12.9 Hypertensive chronic kidney disease with stage 1 through stage 4 chronic kidney disease, or unspecified chronic kidney disease; N18.9 Chronic kidney disease, unspecified; D64.9 Anemia, unspecified; Z86.718 Personal history of other venous thrombosis and embolism; F12.90 Cannabis use, unspecified, uncomplicated; I50.9 Heart failure, unspecified; Z88.8 Allergy status to other drugs, medicaments and biological substances; Z98.890 Other specified postprocedural states

== ENCOUNTER 2024-01-17 19:03 | Emergency (ER) | payer OTHER, MEDICAID ==
[~2024-01-17] VITALS: Ht 180.3 cm; Wt 89.8 kg
[~2024-01-17 19:03] MED LIST changes: +ARIPIPRAZOLE5 MG PO; +ASPIRIN CHILDRE81 MG PO; +ATIVAN1 MG PO; +AURYXIA210 MG PO; +DOXAZOSIN MESYLA2 MG PO; +METOPROLOL TART50 M1 PO; +PLAVIX75 M1 PO; +SEROQUEL XR150 MG PO; +ZOLPIDEM10 MG PO
[2024-01-17] MEDS ORDERED: ACETAMINOPHEN 325 MG TAB PO ONE (19:25)
== END 2024-01-17 20:54 | disposition home or self-care (01) ==
LOC: ED 19:03
DX: M70.22 Olecranon bursitis, left elbow (principal); M70.21 Olecranon bursitis, right elbow; E11.22 Type 2 diabetes mellitus with diabetic chronic kidney disease; I13.0 Hypertensive heart and chronic kidney disease with heart failure and stage 1 through stage 4 chronic kidney disease, or unspecified chronic kidney disease; N18.9 Chronic kidney disease, unspecified; F12.90 Cannabis use, unspecified, uncomplicated; Z88.8 Allergy status to other drugs, medicaments and biological substances; Z98.890 Other specified postprocedural states; Y93.89 Activity, other specified

== ENCOUNTER → 2024-02-14 | Outpatient (CLI) | payer MEDICAID | END | disposition home or self-care (01) | LOC: ORTHO 00:22 | PROVIDERS: ATTEND Orthopaedic Surgery | DX: M17.0 Bilateral primary osteoarthritis of knee (principal) ==

== ENCOUNTER 2024-02-23 11:50 | Emergency (ER) | payer MEDICAID ==
[~2024-02-23] VITALS: Wt 94.3 kg
[2024-02-23 12:42] LABS: BASO % 0.4 % (0.0-1.0); EOS # 0.1 10*3/uL (0.0-0.4); EOS % 1.9 % (1.0-4.0); LYMPH % 20.2 % (27.0-41.0); MEAN CELL VOLUME 96.5 fl (80.0-94.0); MEAN CORPUSCULAR HGB 31.6 pg (27.0-31.0); MEAN CORPUSCULAR HGB CONC 32.8 g/dl (33.0-37.0); MONO # 0.4 10*3/uL (0.1-1.0); MONO % 8.3 % (3.0-9.0); NEUT # 3.3 10*3/uL (2.3-7.9); PLATELET COUNT AUTOMATED 196 10*3/uL (130-400); RED BLOOD COUNT 3.73 10*6/uL (4.50-5.90); RED CELL DISTRI WIDTH 15.7 % (0-14.5); WHITE BLOOD COUNT 4.7 10*3/uL (4.8-10.8)
[2024-02-23] MEDS ORDERED: MORPHINE Sulfate 2 MG/ML SYR IV ONE (12:50)
[2024-02-23] MEDS ORDERED: Ondansetron Hydrochloride 4 MG/2 ML VIAL IV ONE (12:50)
[2024-02-23 13:06] LABS: POTASSIUM 4.4 mmol/L (3.4-5.1)
[2024-02-23] MEDS ORDERED: Lidocaine Hydrochloride 15 ML UDC PO ONE (16:10)
[2024-02-23] MEDS ORDERED: Dicyclomine Hydrochloride 20 MG/10 ML OSYR PO ONE (16:10)
[2024-02-23] MEDS ORDERED: MG-AL HYDROXIDE/SIMETICONE 30 ML UDC PO ONE (16:10)
== END 2024-02-23 17:34 | disposition home or self-care (01) ==
LOC: ED 11:50
PROVIDERS: Emergency Medicine
DX: K59.00 Constipation, unspecified (principal); R10.13 Epigastric pain; K31.84 Gastroparesis; R94.31 Abnormal electrocardiogram [ECG] [EKG]; R11.2 Nausea with vomiting, unspecified; M54.6 Pain in thoracic spine; E11.22 Type 2 diabetes mellitus with diabetic chronic kidney disease; I12.0 Hypertensive chronic kidney disease with stage 5 chronic kidney disease or end stage renal disease; N18.6 End stage renal disease; I25.2 Old myocardial infarction; E66.01 Morbid (severe) obesity due to excess calories; F17.200 Nicotine dependence, unspecified, uncomplicated; Z99.2 Dependence on renal dialysis; Z88.8 Allergy status to other drugs, medicaments and biological substances; Z91.048 Other nonmedicinal substance allergy status; Z79.899 Other long term (current) drug therapy; Z79.82 Long term (current) use of aspirin; Z86.711 Personal history of pulmonary embolism; Z86.718 Personal history of other venous thrombosis and embolism; Z98.84 Bariatric surgery status; Z68.30 Body mass index [BMI] 30.0-30.9, adult

== ENCOUNTER 2024-05-19 04:40 | Emergency (ER) | payer MEDICAID ==
[~2024-05-19] VITALS: Ht 180.3 cm; Wt 97.1 kg
[2024-05-19] MEDS ORDERED: 'XANAX1 MG PO (04:57)
[2024-05-19 06:28] LABS: HEMATOCRIT 34.4 % (42.0-52.0); MEAN CELL VOLUME 105.8 fl (80.0-94.0); MEAN CORPUSCULAR HGB 33.2 pg (27.0-31.0); MEAN CORPUSCULAR HGB CONC 31.4 g/dl (33.0-37.0); MEAN PLATELET VOLUME 9.6 fl (9.6-12.3); PLATELET COUNT AUTOMATED 213 10*3/uL (130-400); RED BLOOD COUNT 3.25 10*6/uL (4.50-5.90); RED CELL DISTRI WIDTH 16.1 % (0-14.5); WHITE BLOOD COUNT 9.2 10*3/uL (4.8-10.8)
[2024-05-19 07:57] LABS: POTASSIUM 4.4 mmol/L (3.4-5.1)
[2024-05-19 08:33] LABS: MANUAL DIFF REFLEX YES
[2024-05-19 08:36] LABS: PLATELET SUFFICIENCY NORMAL (NORMAL); TOTAL CELLS COUNTED 100 #CELLS
[2024-05-19] MEDS ORDERED: Doxycycline Hyclate 100 MG CAP PO ONE (09:05)
[2024-05-19] MEDS ORDERED: CEPHALEXIN 500 MG CAP PO ONE (09:05)
[2024-05-19] MEDS ORDERED: CEPHALEXIN500 M1 PO (10:10)
[2024-05-19] MEDS ORDERED: DOXYCYCLINE HY100 M3 PO (10:10)
== END 2024-05-19 10:22 | disposition home or self-care (01) ==
LOC: ED 04:40
PROVIDERS: Internal Medicine
DX: R11.2 Nausea with vomiting, unspecified (principal); M79.89 Other specified soft tissue disorders; L53.9 Erythematous condition, unspecified; E11.9 Type 2 diabetes mellitus without complications; I11.0 Hypertensive heart disease with heart failure; I50.9 Heart failure, unspecified; F12.90 Cannabis use, unspecified, uncomplicated; Z91.048 Other nonmedicinal substance allergy status; Z88.8 Allergy status to other drugs, medicaments and biological substances; Z98.890 Other specified postprocedural states

== ENCOUNTER 2024-06-22 07:03 | Emergency (ER) | payer MEDICAID ==
[~2024-06-22] VITALS: Ht 182.8 cm; Wt 109.8 kg
[~2024-06-22 07:03] MED LIST changes: +'XANAX1 MG PO; +CEPHALEXIN500 M1 PO; +DOXYCYCLINE HY100 M3 PO
[2024-06-22] MEDS ORDERED: Acetaminophen/Oxycodone 5 MG/325 MG TABLET PO ONE (07:20)
[2024-06-22] MEDS ORDERED: TRAMADOL HCL50 MG PO (07:57)
== END 2024-06-22 08:21 | disposition home or self-care (01) ==
LOC: ED 07:03
DX: S70.01XA Contusion of right hip, initial encounter (principal); E11.9 Type 2 diabetes mellitus without complications; I11.0 Hypertensive heart disease with heart failure; I50.9 Heart failure, unspecified; F12.90 Cannabis use, unspecified, uncomplicated; Z91.048 Other nonmedicinal substance allergy status; Z88.8 Allergy status to other drugs, medicaments and biological substances; Z98.890 Other specified postprocedural states; W00.0XXA Fall on same level due to ice and snow, initial encounter; Y93.01 Activity, walking, marching and hiking; Y92.481 Parking lot as the place of occurrence of the external cause; Y99.8 Other external cause status

== ENCOUNTER 2024-10-03 13:20 | Inpatient (IN) | payer MEDICAID ==
[~2024-10-03] VITALS: Ht 180.3 cm; Wt 98.9 kg
[~2024-10-03 13:20] MED LIST changes: +BENZTROPINE MESY1 MG PO; +LEADER ASPIRIN325 MG PO; +METHOCARBAMOL750 M1 PO; +MUCUS RELIEF E600 MG PO; +Renagel PO; +SEVELAMER HCL800 MG PO; +SODIUM CHLORIDE 0.9% 1,000 ML BAG IV ONE; +TRAMADOL HCL50 MG PO; +VITAMIN D350 MCG PO; +ZITHROMAX500 MG PO
[2024-10-03 13:27] VITALS: BP 177/69
[2024-10-03 14:07] LABS: BASO % 0.5 % (0.0-1.0); EOS # 0.3 10*3/uL (0.0-0.4); MEAN CELL VOLUME 105.3 fl (80.0-94.0); MEAN CORPUSCULAR HGB 32.3 pg (27.0-31.0); MEAN CORPUSCULAR HGB CONC 30.7 g/dl (33.0-37.0); MEAN PLATELET VOLUME 9.2 fl (9.6-12.3); MONO # 0.4 10*3/uL (0.1-1.0); NEUT # 2.5 10*3/uL (2.3-7.9); NEUT % 62.4 % (47.0-73.0); PLATELET COUNT AUTOMATED 128 10*3/uL (130-400); RED BLOOD COUNT 2.66 10*6/uL (4.50-5.90); RED CELL DISTRI WIDTH 16.2 % (0-14.5)
[2024-10-03 14:36] LABS: ALKALINE PHOSPHATASE 635 U/L (46-116); BUN 104 mg/dl (9-23); CHLORIDE 97 mmol/L (98-107); TOTAL PROTEIN 6.8 gm/dL (6.0-8.0)
[2024-10-03 14:37] LABS: SGPT/ALT < 7 U/L (5-49)
[2024-10-03 14:38] LABS: POTASSIUM 7.7 mmol/L (3.4-5.1)
[2024-10-03] MEDS ORDERED: SODIUM POLYSTYRENE SULFONATE 15 GM/60 ML BOT PO ONE (15:55)
[2024-10-03] MEDS ORDERED: DEXTROSE 50% 25 GM/50 ML SYR IV ONE (15:55)
[2024-10-03] MEDS ORDERED: CALCIUM GLUC IN NACL, ISO-OSM 100 ML IV ONE (15:55)
[2024-10-03] MEDS ORDERED: INSULIN REGULAR, HUMAN 1 UNIT/0.01 ML IV ONE (15:55)
[2024-10-03 18:41] VITALS: BP 177/53
[2024-10-03] MEDS ORDERED: Ondansetron Hydrochloride 4 MG/2 ML VIAL IV PRN (18:55)
[2024-10-03] MEDS ORDERED: BISACODYL 10 MG SUPP R PRN (18:55)
[2024-10-03] MEDS ORDERED: BISACODYL 5 MG TAB PO PRN (18:55)
[2024-10-03] MEDS ORDERED: Acetaminophen/Hydrocodone 5 MG/325 MG TABLET PO PRN (18:55)
[2024-10-03 23:01] VITALS: BP 140/83
[2024-10-03 23:48] LABS: BASO % 0.2 % (0.0-1.0); EOS # 0.3 10*3/uL (0.0-0.4); EOS % 6.4 % (1.0-4.0); HEMATOCRIT 27.1 % (42.0-52.0); MEAN CELL VOLUME 103.4 fl (80.0-94.0); MEAN CORPUSCULAR HGB 32.8 pg (27.0-31.0); MEAN CORPUSCULAR HGB CONC 31.7 g/dl (33.0-37.0); MONO # 0.4 10*3/uL (0.1-1.0); MONO % 10.3 % (3.0-9.0); NEUT # 2.4 10*3/uL (2.3-7.9); NEUT % 60.2 % (47.0-73.0); PLATELET COUNT AUTOMATED 123 10*3/uL (130-400); RED BLOOD COUNT 2.62 10*6/uL (4.50-5.90); RED CELL DISTRI WIDTH 15.9 % (0-14.5); WHITE BLOOD COUNT 4.1 10*3/uL (4.8-10.8)
[2024-10-04] VITALS (8 sets, daily range): BP systolic 151–186; BP diastolic 49–86
[2024-10-04 00:16] LABS: POTASSIUM 5.9 mmol/L (3.4-5.1)
[2024-10-04] MEDS ORDERED: SODIUM POLYSTYRENE SULFONATE 15 GM/60 ML BOT PO ONE (00:30)
[2024-10-04] MEDS ORDERED: CALCIUM GLUC IN NACL, ISO-OSM 100 ML IV ONE (00:30)
[2024-10-04] MEDS ORDERED: DEXTROSE 50% 25 GM/50 ML VIAL IV ONE (01:15)
[2024-10-04] MEDS ORDERED: INSULIN REGULAR, HUMAN 1 UNIT/0.01 ML IV ONE (01:20)
[2024-10-04] MEDS ORDERED: DEXTROSE 50% 25 GM/50 ML SYR IV ONE (01:50)
[2024-10-04] MEDS ORDERED: HEPARIN SODIUM 5,000 UNIT/ML VIAL SC SCH (06:00)
[2024-10-04 06:15] LABS: BASO % 0.3 % (0.0-1.0); EOS # 0.2 10*3/uL (0.0-0.4); EOS % 6.6 % (1.0-4.0); HEMATOCRIT 25.5 % (42.0-52.0); MEAN CELL VOLUME 103.7 fl (80.0-94.0); MEAN CORPUSCULAR HGB 32.5 pg (27.0-31.0); MEAN CORPUSCULAR HGB CONC 31.4 g/dl (33.0-37.0); MEAN PLATELET VOLUME 9.8 fl (9.6-12.3); MONO # 0.4 10*3/uL (0.1-1.0); MONO % 11.1 % (3.0-9.0); NEUT % 56.6 % (47.0-73.0); PLATELET COUNT AUTOMATED 128 10*3/uL (130-400); RED BLOOD COUNT 2.46 10*6/uL (4.50-5.90); RED CELL DISTRI WIDTH 15.9 % (0-14.5); WHITE BLOOD COUNT 3.5 10*3/uL (4.8-10.8)
[2024-10-04] MEDS ORDERED: HEPARIN SODIUM 5,000 UNIT/ML VIAL IV SCH (07:30)
[2024-10-04] MEDS ORDERED: SODIUM CHLORIDE 0.9% 1,000 ML IV SCH (07:30)
[2024-10-04] MEDS ORDERED: HEPARIN SODIUM 10,000 UN/10 ML VIAL IV SCH (07:30)
[2024-10-04] MEDS ORDERED: ALBUMIN 25% 50 ML IV PRN (07:30)
[2024-10-04] MEDS ORDERED: MANNITOL 12.5 GM/50 ML VIAL IV SCH (07:30)
[2024-10-04] MEDS ORDERED: SODIUM CHLORIDE 23.4% 120 MEQ/30 ML VIAL IV SCH (07:30)
[2024-10-04 07:44] LABS: POTASSIUM 5.8 mmol/L (3.4-5.1)
[2024-10-04] MEDS ORDERED: EPOETIN ALFA-EPBX 10,000 UNIT/ML VIAL IV ONE (07:45)
[2024-10-04] MEDS ORDERED: PERCOCET 5-3251 EACH PO (08:23)
[2024-10-04] MEDS ORDERED: Gelatin Sponge 1 EACH SPON T ONE (09:38)
[2024-10-04] MEDS ORDERED: SODIUM CHLORIDE 0.9% 1,000 ML BAG IV ONE (09:38)
[2024-10-04] MEDS ORDERED: ALPRAZolam 0.5 MG TAB PO PRN (10:55)
[2024-10-04] MEDS ORDERED: Sevelamer Hydrochloride 800 MG TAB PO SCH (12:00)
[2024-10-04 14:00] LABS: POTASSIUM 4.2 mmol/L (3.4-5.1)
[2024-10-04] MEDS ORDERED: FERRIC CITRATE 210 MG PO SCH (14:00)
[2024-10-04] MEDS ORDERED: HEPARIN SODIUM 250 ML IV SCH (15:05)
[2024-10-04 17:17] LABS: ACT PARTIAL THROMBO TIME 24.2 SECONDS (20.0-32.1)
[2024-10-04] MEDS ORDERED: BENZTROPINE MESYLATE 1 MG TAB PO SCH (18:00)
[2024-10-04] MEDS ORDERED: Metoclopramide Hydrochloride 10 MG/2 ML VIAL IV ONE (20:30)
[2024-10-04] MEDS ORDERED: Metoprolol Tartrate 5 MG/5 ML VIAL IV ONE (20:30)
[2024-10-04] MEDS ORDERED: OMEPRAZOLE 10 MG CAP PO PRN (20:30)
[2024-10-04] MEDS ORDERED: ZOLPIDEM TARTRATE 10 MG TAB PO SCH (22:00)
[2024-10-04] MEDS ORDERED: Metoprolol Tartrate 50 MG TAB PO SCH (22:00)
[2024-10-05 00:39] VITALS: BP 153/53
[2024-10-05 04:00] VITALS: BP 175/58
[2024-10-05 08:00] VITALS: BP 174/47
[2024-10-05 08:15] LABS: BASO % 0.2 % (0.0-1.0); EOS # 0.2 10*3/uL (0.0-0.4); EOS % 4.8 % (1.0-4.0); HEMATOCRIT 25.4 % (42.0-52.0); MEAN CELL VOLUME 101.6 fl (80.0-94.0); MEAN CORPUSCULAR HGB 32.8 pg (27.0-31.0); MEAN CORPUSCULAR HGB CONC 32.3 g/dl (33.0-37.0); MEAN PLATELET VOLUME 9.6 fl (9.6-12.3); MONO # 0.4 10*3/uL (0.1-1.0); MONO % 10.3 % (3.0-9.0); NEUT # 2.3 10*3/uL (2.3-7.9); NEUT % 56.1 % (47.0-73.0); PLATELET COUNT AUTOMATED 146 10*3/uL (130-400); RED CELL DISTRI WIDTH 15.4 % (0-14.5); WHITE BLOOD COUNT 4.2 10*3/uL (4.8-10.8)
[2024-10-05] MEDS ORDERED: SODIUM CHLORIDE 0.9% 1,000 ML BAG IV ONE (08:36)
[2024-10-05 08:40] LABS: POTASSIUM 4.2 mmol/L (3.4-5.1)
[2024-10-05] MEDS ORDERED: Cholecalciferol 2,000 UNIT TABLET (50 MCG) PO SCH (10:00)
[2024-10-05] MEDS ORDERED: Clopidogrel Hydrogen Sulfate 75 MG TAB PO SCH (10:00)
[2024-10-05] MEDS ORDERED: Losartan Potassium 50 MG TAB PO SCH (10:00)
[2024-10-05] MEDS ORDERED: cefTRIAXone Sodium 1 GM in SYRINGE INFUSION 10 ML IV SCH (10:00)
[2024-10-05] MEDS ORDERED: amLODIPine besylate 10 MG TAB PO SCH (10:00)
[2024-10-05] MEDS ORDERED: hydrALAZINE hydrochloride 25 MG TAB PO SCH (10:00)
[2024-10-05 12:02] VITALS: BP 168/52
[2024-10-05] MEDS ORDERED: ELIQUIS5 M1 PO (12:42)
[2024-10-05] MEDS ORDERED: APIXABAN 5 MG TAB PO SCH (22:00)
== END 2024-10-05 14:09 | disposition home or self-care (01) | DRG 425 ==
LOC: ED 13:20 → ICCU 18:41 → EDHOLD 18:41 → ICCU 10-04 07:25
PROVIDERS: Internal Medicine; Nurse Practitioner Family; Student in an Organized Health Care Education/Training Program; ADMIT Internal Medicine; ATTEND Internal Medicine
PROC: 06HY33Z Insertion of Infusion Device into Lower Vein, Percutaneous Approach (ICD-10-PCS; 2024-10-03)
PROC: 5A1D70Z Performance of Urinary Filtration, Intermittent, Less than 6 Hours Per Day (ICD-10-PCS; principal; 2024-10-04)
PROC: 5A1D70Z Performance of Urinary Filtration, Intermittent, Less than 6 Hours Per Day (ICD-10-PCS; 2024-10-05)
DX: E87.5 Hyperkalemia (principal); N18.6 End stage renal disease; D69.6 Thrombocytopenia, unspecified; I12.0 Hypertensive chronic kidney disease with stage 5 chronic kidney disease or end stage renal disease; I82.C23 Chronic embolism and thrombosis of internal jugular vein, bilateral; E11.43 Type 2 diabetes mellitus with diabetic autonomic (poly)neuropathy; D53.9 Nutritional anemia, unspecified; K31.84 Gastroparesis; E11.22 Type 2 diabetes mellitus with diabetic chronic kidney disease; D72.810 Lymphocytopenia; E83.41 Hypermagnesemia; E87.8 Other disorders of electrolyte and fluid balance, not elsewhere classified; Z99.2 Dependence on renal dialysis; Z91.199 Patient's noncompliance with other medical treatment and regimen due to unspecified reason; Z88.8 Allergy status to other drugs, medicaments and biological substances; Z79.899 Other long term (current) drug therapy; Z86.711 Personal history of pulmonary embolism; Z79.1 Long term (current) use of non-steroidal anti-inflammatories (NSAID); Z79.4 Long term (current) use of insulin

== ENCOUNTER 2025-04-11 22:18 | Emergency (ER) | payer MEDICAID ==
[~2025-04-11] VITALS: Ht 180.3 cm; Wt 94.8 kg
[~2025-04-11 22:18] MED LIST changes: -SODIUM CHLORIDE 0.9% 1,000 ML BAG IV ONE
[2025-04-11 23:16] LABS: BASO # 0.0 10*3/uL (0.0-0.1); BASO % 0.3 % (0.0-1.0); EOS # 0.1 10*3/uL (0.0-0.4); EOS % 1.1 % (1.0-4.0); MEAN CELL VOLUME 97.9 fl (80.0-94.0); MEAN CORPUSCULAR HGB 30.9 pg (27.0-31.0); MEAN PLATELET VOLUME 9.2 fl (9.6-12.3); MONO # 0.6 10*3/uL (0.1-1.0); MONO % 10.1 % (3.0-9.0); NEUT # 4.8 10*3/uL (2.3-7.9); NEUT % 76.3 % (47.0-73.0); NUCLEATED RED BLOOD CELL 0.0 % (0.0-0.0); NUCLEATED RED BLOOD CELL 0.0 10*3/uL (0.0-0.0); PLATELET COUNT AUTOMATED 196 10*3/uL (130-400); RED CELL DISTRI WIDTH 14.6 % (0-14.5)
[2025-04-12 00:21] LABS: BUN 56.0 mg/dl (9-23)
[2025-04-12] MEDS ORDERED: Ondansetron4 MG PO (00:45)
== END 2025-04-12 01:02 | disposition home or self-care (01) ==
LOC: ED 22:18
PROVIDERS: Internal Medicine
DX: R11.2 Nausea with vomiting, unspecified (principal); E87.8 Other disorders of electrolyte and fluid balance, not elsewhere classified; D53.9 Nutritional anemia, unspecified; E11.22 Type 2 diabetes mellitus with diabetic chronic kidney disease; I13.2 Hypertensive heart and chronic kidney disease with heart failure and with stage 5 chronic kidney disease, or end stage renal disease; I50.9 Heart failure, unspecified; N18.6 End stage renal disease; R09.81 Nasal congestion; Z99.2 Dependence on renal dialysis; Z88.8 Allergy status to other drugs, medicaments and biological substances; Z91.048 Other nonmedicinal substance allergy status; Z79.899 Other long term (current) drug therapy; Z20.822 Contact with and (suspected) exposure to COVID-19